=== PATIENT | male | born 1995 | race Hispanic/Latino ===

== ENCOUNTER 2018-01-25 12:22 | Emergency (ER) | payer BC ==
[2018-01-25] MEDS ORDERED: Ketorolac Tromethamine 60 MG/2 ML VIAL ONE (13:07)
--- NOTE | 2018-01-25 13:42 | RAD ---
LUMBAR SPINE THREE VIEWS: History: Back pain. Fell off ladder last night. FINDINGS/IMPRESSION: No acute fracture or subluxation is identified. POS: OFF
== END 2018-01-25 13:52 | disposition home or self-care (01) ==
LOC: ERS 12:22
DX: S29.012A Strain of muscle and tendon of back wall of thorax, initial encounter (principal); F17.210 Nicotine dependence, cigarettes, uncomplicated; W11.XXXA Fall on and from ladder, initial encounter
CPT/HCPCS: 72100; J1885

== ENCOUNTER 2018-08-28 09:27 | Emergency (ER) | payer BC | END 2018-08-28 10:27 | disposition home or self-care (01) | LOC: ERS 09:27 | DX: J02.9 Acute pharyngitis, unspecified (principal); F17.210 Nicotine dependence, cigarettes, uncomplicated | CPT/HCPCS: 87070; 87081; 87430; 99283 ==

== ENCOUNTER 2018-12-02 13:16 | Emergency (ER) | payer BC ==
--- NOTE | 2018-12-02 13:47 | RAD ---
3 VIEWS LEFT ANKLE: Date: 12/02/18 COMPARISON: None. HISTORY: Tripped and fell with left ankle pain. FINDINGS: 3 views of the left ankle show no evidence of acute fracture or dislocation. Mild lateral soft tissue swelling is seen. No degenerative changes are seen. IMPRESSION: No evidence of acute osseous abnormality. POS: CET
[2018-12-02] MEDS ORDERED: HYDROcodone/Acetaminophen 5/325 mg Tablet ONE (13:51)
== END 2018-12-02 14:17 | disposition home or self-care (01) ==
LOC: ERS 13:16
DX: S93.402A Sprain of unspecified ligament of left ankle, initial encounter (principal); F17.210 Nicotine dependence, cigarettes, uncomplicated; X50.1XXA Overexertion from prolonged static or awkward postures, initial encounter; Y93.67 Activity, basketball

== ENCOUNTER 2023-01-08 03:27 | Emergency (ER) | payer BC | END 2023-01-08 04:47 | disposition home or self-care (01) | LOC: ERS 03:27 | DX: T41.295A Adverse effect of other general anesthetics, initial encounter (principal); F17.210 Nicotine dependence, cigarettes, uncomplicated | CPT/HCPCS: 93005 ==